=== PATIENT | female | born 1980 | race Caucasian/White ===

== ENCOUNTER 2025-04-25 16:46 | Emergency (ER) | payer BC, SELFPAY ==
[2025-04-25 16:49] VITALS: BP 110/72
[2025-04-25 17:16] LABS: Hematocrit 40.7 % (37.0-47.0); Hemoglobin 13.9 g/dL (12.0-16.0); Mean Corp Hgb Conc. 34.2 g/dL (33.0-37.0); Mean Corpuscular Volume 94.7 fL (81.0-99.0); Nucleated Red Blood Cells % 0 %; Platelet Count 243 10^3/uL (130-400); Red Cell Dist. Width 11.1 % (11.5-14.5)
[2025-04-25 17:17] LABS: Urine Character Clear (Clear)
[2025-04-25 17:24] LABS: Urine Red Blood Cell 0-2 /HPF (0-2); Urine White Cell 0-2 /HPF (0-5)
[2025-04-25 17:29] LABS: HCG, Serum Qualitative Screen Negative
[2025-04-25 17:33] LABS: ALT (SGPT) 24 U/L (0-35); AST (SGOT) 33 U/L (14-36); Albumin 4.6 g/dl (3.5-5.0); Alkaline Phosphatase 47 U/L (38-126); Blood Urea Nitrogen 17 mg/dl (7-17); Calcium 9.5 mg/dl (8.4-10.2); Carbon Dioxide 29 mmol/L (22-30); Chloride 99 mmol/L (98-107); Glucose 76 mg/dl (70-99); Lipase 234 U/L (23-300); Potassium 3.8 mmol/L (3.5-5.1); Sodium 132 mmol/L (135-145); Total Protein 7.6 g/dl (6.3-8.2); eGFR > 60.00
[2025-04-25 17:44] VITALS: BP 109/61
[2025-04-25 18:00] VITALS: BP 105/74
--- NOTE | 2025-04-25 18:06 | ED.GENMED ---
History of Present Illness
General
Chief Complaint: Abdominal Pain
Time Seen by Provider: 04/25/25 18:06
History of Present Illness
History of Present Illness:
FOCUSED PAST MEDICAL HISTORY
- No significant past medical history but has had a UTI in the past
REVIEW OF OLD RECORDS
-
Note:
CHIEF COMPLAINT(S)
Burning pain in the upper abdomen radiating to the lower abdomen.
HISTORY OF PRESENT ILLNESS
The patient is a 44-year-old female who presents with burning pain in the upper abdomen radiating downward, which she describes as a dull burning pain extending to the ovarian area. She reports that her abdomen feels bloated and is particularly
tender to touch below the belly button. She initially experienced similar symptoms a few weeks ago but they resolved after about five days. At that time, she saw a wood handler who tested for ulcers, which came back negative. No endoscopy was
performed as her symptoms resolved. The patient has had no previous similar episodes before this.
Today, she reports that the symptoms have returned with a pain severity of 6 out of 10. She has also experienced difficulty eating, stating she feels severe burning pain several hours after eating. She previously started proton pump inhibitors,
which she has resumed, but reports minimal relief. She also tried Zantac, which did not provide much help.
Lab tests today reveal normal white blood cell count, normal chemistry levels, and normal liver function tests. Urinalysis indicated no signs of infection. She denies any alcohol consumption recently and drinks water and digestive teas regularly.
PHYSICAL EXAM
General: Alert, no acute distress.
Skin: Warm, dry.
Head: Normocephalic, atraumatic.
Neck: Supple, trachea midline.
Eyes, Ears, Nose, Mouth, and Throat: Oral mucosa moist.
Cardiovascular: Normal peripheral perfusion, No edema.
Respiratory: Respirations are non-labored.
Gastrointestinal: Abdomen nondistended but tender upon palpation below the umbilicus.
Back: Normal range of motion, Normal alignment.
Musculoskeletal: Normal range of motion, normal strength.
Neurological: Alert and oriented to person, place, time, and situation, No focal neurological deficit observed.
Psychiatric: Cooperative, appropriate mood & affect.
PROBLEM LIST
Acute Problems:
1. Abdominal pain with radiation.
2. Abdominal bloating and tenderness.
PLAN
1. Order a computed tomography (CT) scan of the abdomen and pelvis with intravenous contrast to further evaluate abdominal pain and rule out significant pathology.
2. Provide intravenous fluids to ensure hydration.
3. Administer Toradol for anti-inflammatory effects and to relieve pain.
4. Encourage follow-up with a wood handler for further evaluation and management.
5. Continue proton pump inhibitor therapy.
DIFFERENTIAL DIAGNOSIS
The Differential Diagnosis includes, in no particular order and is not limited to:
1. Peptic Ulcer Disease
2. Gastroesophageal Reflux Disease (GERD)
3. Gallbladder Disease
4. Pancreatitis
5. Ovarian Cyst
6. Gastroenteritis
7. Urinary Tract Infection
8. Diverticulitis
9. Hernia
10. Irritable Bowel Syndrome (IBS)
SUMMARY OF ENCOUNTER
The patient, a 44-year-old female, was seen in the emergency department for burning pain in the upper abdomen radiating to the lower abdomen, which improved with medication given in the department. The CT scan showed no significant abnormalities in
the upper abdomen, but there was a small cyst in the right ovary along with increased fluid in the pelvis, suggesting a possible ruptured ovarian cyst. The patient reported similar lower abdominal pain previously, which was not as tender on today�s
exam post-treatment. The work-up, including normal white blood cell count and liver function tests, pointed away from appendicitis. The plan involved continuation of proton pump inhibitors and consideration of further evaluation by a
wood handler for potential endoscopy, as well as use of anti-inflammatory medication at home (Motrin/ibuprofen). An anti-nausea prescription was to be sent to the pharmacy.
DISPOSITION
Discharge.
ASSESSMENT
The patient likely has a ruptured ovarian cyst, causing the lower abdominal pain, along with possible mild gastritis contributing to the upper abdominal symptoms.
EMERGENCY TREATMENTS ADMINISTERED
Toradol was administered for anti-inflammatory and pain relief.
PLAN
1. Continue taking proton pump inhibitors.
2. Start ibuprofen (Motrin) for its anti-inflammatory effects, taking 3-4 tablets every 6-8 hours with food to minimize stomach irritation.
3. Follow up with a wood handler to consider endoscopy.
4. Prescribe anti-nausea medication to the patients pharmacy.
INDEPENDENT REVIEW OF LABS AND INTERPRETATION OF TESTS
- My independent review of the white blood cell count is normal.
- My independent review of liver function tests is normal.
- My independent CT scan interpretation is that there is a small right ovarian cyst with increased fluid in the pelvis suggestive of rupture, likely correlating to the patients symptoms. The upper abdomen showed no significant pathology.
MEDICATION RECONCILIATION
1. Toradol administered in the emergency department.
2. Ibuprofen (Motrin) suggested for at-home use.
3. Prescription for anti-nausea medication to be sent to pharmacy.
MEDICAL DECISION MAKING
-Complexity of Data Reviewed: Chronic conditions affecting care include the differential diagnosis of peptic ulcer disease, gastroesophageal reflux disease (GERD), gallbladder disease, pancreatitis, ovarian cyst, gastroenteritis, urinary tract
infection, diverticulitis, hernia, and irritable bowel syndrome (IBS).
-Data:
Category 1:
- Reviewed normal white blood cell count and normal liver function tests.
- My independent interpretation of CT scan shows a small right ovarian cyst with increased fluid in the pelvis, suggestive of rupture.
Category 3:
- No significant consultation with other healthcare providers was documented.
-Risk:
Prescription medication was prescribed, and Ibuprofen was suggested for at-home use.
Consideration of Admission/Observation: Escalation of care including admission/observation was considered given the complexity and risk of the patients presenting complaint, exam findings, and/or their underlying comorbidities. However, ultimately I
feel the patient is safe for outpatient management with close follow-up. Reasoning: Work-up reassuring, does not reveal any acute life/organ-threatening processes, patients symptoms well controlled upon reevaluation, reexamination is reassuring,
vitals are stable, patient agreeable with discharge, reliable for follow-up.
DIAGNOSIS
- Ruptured ovarian cyst (ICD-10: N83.0).
- Possible gastritis (ICD-10: K29.70).
RADIOLOGY
- CAT scan personally reviewed and agree with radiologist interpretation, small to moderate free fluid noted in the pelvis along with cystic lesion of the right adnexa. Although the radiologist did note somewhat difficult to visualize appendix, I
have very low suspicion for appendicitis as her white count is normal and her pain is actually in the upper abdomen.
EKG
- Sinus 62, normal axis, no acute ST abnormality
LABS
- White count and hemoglobin are normal, hCG negative, LFTs and lipase normal, UA shows no sign of infection
UPDATE
- The patient was given Pepcid, Zofran, IV fluids, and Toradol.
- The patient feels markedly improved on reassessment
- More strongly suspect ruptured ovarian cyst as the cause of her pain and lower tenderness however since she does have some upper abdominal discomfort I recommend that she continues the PPI and follow-up with GI as well as gynecology
- Very low suspicion for appendicitis given the normal white blood cell count and tenderness is not focal to the right lower quadrant however encouraged to return if worse
Phy Exam
Physical Exam
Physical Exam:
See HPI
Course
Orders/Labs/Results
Orders:
Orders
04/25/25 16:56
Electrocardiogram (*1) Urgent
Reason for Study: Abdominal Pain
04/25/25 16:57
EKG- Treatment ONCE
Test Result ONCE
04/25/25 17:06
Complete Blood Count/With Diff Urgent
Comprehensive Metabolic Panel Urgent
HCG, Serum Qualitative Screen Urgent
Lipase Urgent
Urinalysis Reflex To Culture Urgent
Date Specimen was Collected: 04/25/25
Time Specimen was Collected: 16:57
Urine Microscopic Reflex Cult Urgent
04/25/25 18:14
CT Abd/pelvis W Iv Cont Urgent
Comment:
Reason For Exam: upper abd pain; lower abd tender; poor po
0.9% Sodium Chloride 1000 ml [Nss] 1,000 ml IV BOLUS
Famotidine [Pepcid] 20 mg IV NOW STA
Ketorolac [Toradol] 15 mg IV NOW STA
Ondansetron Injectable [Zofran] 4 mg IV NOW STA
Abnormal Lab Results
04/25/25
17:06
MCH 32.3 H pg
(27.0-31.0)
RDW 11.1 L %
(11.5-14.5)
Sodium 132 L mmol/L
(135-145)
Urine Bacteria (Reflex) Few A
(Negative)
Urine Albumin (Reflex) 1+ A
(Neg - Trace)
04/25/25 17:06
04/25/25 17:06
Vital Signs
Initial and Last Documented VS:
Initial Vital Signs
Temp Pulse Resp BP Pulse Ox
36.4 C 75 18 110/72 98
04/25/25 16:49 04/25/25 16:49 04/25/25 16:49 04/25/25 16:49 04/25/25 16:49
Last Documented Vital Signs
Temp Pulse Resp BP Pulse Ox
36.9 C 82 20 105/74 98
04/25/25 18:13 04/25/25 18:13 04/25/25 18:13 04/25/25 18:13 04/25/25 18:15
*Pulse Oximetry
SaO2: 98
Oxygen Mode of Delivery: Room air
Patient hypoxic: no
*Critical Care Note
Total Time (30-74mins, 75-104mins- exclusive of procedures): Not Applicable
ED Attending Note
-
Portions of this chart may have been created with voice recognition software.� Occasional wrong word or��sound alike� substitutions may have occurred due to the inherent limitations of voice recognition software.
Discharge Plan
Departure
Prescriptions:
No Action
No Current Medications
0
Interventions
Interventions:
*Risk Screen - Suicide Last Done: 04/25/25 16:49
*General Assessment Last Done: 04/25/25 16:49
*Neglect/Abuse Screening Last Done: 04/25/25 16:49
*ED- Fall Risk Assessment Last Done: 04/25/25 18:13
*ED COVID-19 Vaccine History Last Done: 04/25/25 16:49
*ED Influenza Vaccine History Last Done: 04/25/25 16:49
XN-Gvetam-Dpkqowzkcm Assessment Last Done: 04/25/25 18:13
Discharge Date and Time
Print Language: GIBRALTARIAN
[2025-04-25 18:13] VITALS: BP 105/74; BMI 19.8
[2025-04-25] MEDS: TORADOL 15 MG IV (18:24)
[2025-04-25] MEDS: PEPCID 20 MG IV (18:24)
[2025-04-25] MEDS: ZOFRAN 4 MG IV (18:24)
[2025-04-25] MEDS: NSS 1000 IV (18:25)
== END 2025-04-25 20:13 | disposition home or self-care (01) ==
LOC: EMR 16:46
PROVIDERS: EMERGENCY PHYSICIAN Emergency Medicine; FAMILY PHYSICIAN Student in an Organized Health Care Education/Training Program
DX: N83.201 Unspecified ovarian cyst, right side (principal); R10.10 Upper abdominal pain, unspecified
CPT/HCPCS: 96374; 96375; 96361; 99284; 74177; 80053; 81003; 81015; 83690; 84703; 85025; 93005; Q9967

== ENCOUNTER 2025-05-05 06:30 | Day surgery (SDC) | payer BC, SELFPAY | END 2025-05-05 10:15 | disposition home or self-care (01) | LOC: GI 06:30 | PROVIDERS: ATTENDING PHYSICIAN Internal Medicine Gastroenterology; FAMILY PHYSICIAN Student in an Organized Health Care Education/Training Program | DX: R10.13 Epigastric pain (principal); K22.89 Other specified disease of esophagus | CPT/HCPCS: 43239; 88305; 88342 ==

== ENCOUNTER → 2025-05-22 07:54 | Outpatient (REF) | payer BC, SELFPAY | LOC: HWRAD 07:54 | PROVIDERS: ATTENDING PHYSICIAN Internal Medicine Gastroenterology; FAMILY PHYSICIAN Student in an Organized Health Care Education/Training Program | DX: R10.84 Generalized abdominal pain (principal) | CPT/HCPCS: 76700 ==